=== PATIENT | female | born 2000 | race Hispanic/Latino ===

== ENCOUNTER 2024-05-31 08:18 | Emergency (ER) | payer OTHER ==
--- NOTE | 2024-05-31 08:43 | ER ---
Nurse's Notes [facility] Name: Cindy Ca Age: 23 yrs Sex: Female : 2000 Arrival Date: 05/31/2024 Time: 08:18 Bed 13 Private MD: Diagnosis: Otalgia, right ear Presentation: 05/31 08:25 Chief complaint: Patient states: R ear pain for 3 days. No fever. Coronavirus screen: ll1 Client denies travel out of the [place] in the last 14 days. At this time, the client does not indicate any symptoms associated with coronavirus-19. Ebola Screen: Patient denies travel to an Ebola-affected area in the 21 days before illness onset. Initial Sepsis Screen: Does the patient meet any 2 criteria? No. Patient's initial sepsis screen is negative. Does the patient have a suspected source of infection? No. Patient's initial sepsis screen is negative. Risk Assessment: Do you want to hurt yourself or someone else? Patient reports no desire to harm self or others. Onset of symptoms was May 29, 2024. 08:25 Method Of Arrival: Ambulatory ll1 08:25 Acuity: JONATHON 4 ll1 Triage Assessment: 08:27 General: Appears uncomfortable, Behavior is calm, cooperative, appropriate for age. ll1 Pain: Complains of pain in right ear Pain currently is 8 out of 10 on a pain scale. Quality of pain is described as aching, throbbing. EENT: Reports pain in right ear. Neuro: No deficits noted. Cardiovascular: No deficits noted. 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 - Infectious Disease History:: Denies. - Social history:: Smoking status: Patient denies any tobacco usage or history of. - Family history:: not pertinent. - Hospitalizations: : No recent hospitalization is reported. Screenin:27 [facility] ED Fall Risk Assessment (Adult) History of falling in the last 3 months, ll1 including since admission No falls in past 3 months (0 pts) Confusion or Disorientation No (0 pts) Intoxicated or Sedated No (0 pts) Impaired Gait No (0 pts) Mobility Assist Device Used No (0 pt) Altered Elimination No (0 pt) Score/Fall Risk Level 0 - 2 = Low Risk Maintained a safe environment, Hourly rounding (assess needs \T\ fall precautionary measures) done. Abuse screen: Denies threats or abuse. Nutritional screening: No deficits noted. Tuberculosis screening: No symptoms or risk factors identified. Assessment: 08:51 Reassessment: No changes from previously documented assessment. Patient and/or family ll1 updated on plan of care and expected duration. Pain level reassessed. Patient is alert, oriented x 3, equal unlabored respirations, skin warm/dry/pink. Vital Signs: 08:25 BP 141 / 100; Pulse 74; Resp 16; Temp 97.4; Pulse Ox 100% ; Weight 99.79 kg; Height 5 ll1 ft. 4 in. ; Pain 8/10; 08:51 BP 138 / 101; Pulse 70; Resp 16; Pulse Ox 100% ; ll1 08:25 Body Mass Index 37.76 (99.79 kg, 162.56 cm) ll1 08:25 Pain Scale: Adult ll1 ED Course: 08:21 Patient arrived in ED. mg5 08:23 Alli Larios MD is Attending Physician. rn 08:23 Arm band placed on Patient placed in an exam room, on a stretcher. ll1 08:27 Triage completed. ll1 08:28 Patient has correct armband on for positive identification. Bed in low position. ll1 Provided Education on: finish all prescribed antibiotics. Cardiac monitoring not applicable on this patient. 08:42 Penny Thomas MD is Referral Physician. rn 08:51 No provider procedures requiring assistance completed. Patient did not have IV access ll1 during this emergency room visit. Administered Medications: No medications were administered Medication: 08:28 VIS not applicable for this client. ll1 Outcome: 08:42 Discharge ordered by . rn 08:51 Discharged to home ambulatory, 1 08:51 Condition: stable 08:51 Discharge instructions given to patient, Instructed on discharge instructions, follow up and referral plans. Demonstrated understanding of instructions, follow-up care, 08:52 Patient left the ED. ll1 Signatures: Alli Larios MD MD rn Lewis, Lynsay, RN RN ll1 Effie Gordon mg5
--- NOTE | 2024-05-31 08:43 | EDPHYS ---
Physician Documentation [facility] Name: Cindy Ca Age: 23 yrs Sex: Female : 2000 Arrival Date: 05/31/2024 Time: 08:18 Bed 13 Private MD: ED Physician Alli Larios HPI: 05/31 08:37 This 23 yrs old Female presents to ER via Ambulatory with complaints of Ear Pain. rn 08:38 The patient presents with pain. The complaints affect the right ear. Onset: The rn symptoms/episode began/occurred 2 day(s) ago. Modifying factors: The symptoms are alleviated by nothing, the symptoms are aggravated by nothing. Severity of symptoms: At their worst the symptoms were. 08:40 The patient has not experienced similar symptoms in the past. Pt reports right sided rn ear pain, for 2 days, no trauma. No fever. NO congestion. Reports more pain to external ear. No change in hearing.. 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 - Infectious Disease History:: Denies. - Social history:: Smoking status: Patient denies any tobacco usage or history of. - Family history:: not pertinent. - Hospitalizations: : No recent hospitalization is reported. ROS: 08:40 Constitutional: Negative for fever, chills, and weight loss, ENT: Positive for ear pain rn Exam: 08:40 Constitutional: This is a well developed, well nourished patient who is awake, alert, rn and in no acute distress. ENT: Normal TM. No erythema or bulging. No fluid. No foreign body. No external meatus inflammation or rash or lesions. Vital Signs: 08:25 BP 141 / 100; Pulse 74; Resp 16; Temp 97.4; Pulse Ox 100% ; Weight 99.79 kg; Height 5 ll1 ft. 4 in. ; Pain 8/10; 08:51 BP 138 / 101; Pulse 70; Resp 16; Pulse Ox 100% ; ll1 08:25 Body Mass Index 37.76 (99.79 kg, 162.56 cm) ll1 08:25 Pain Scale: Adult ll1 MDM: 08:23 Patient medically screened. rn 08:40 Differential diagnosis: acute otalgia. Data reviewed: vital signs, nurses notes, and as rn a result, I will discharge patient. Counseling: I had a detailed discussion with the patient and/or guardian regarding the historical points, exam findings, and any diagnostic results supporting the discharge/admit diagnosis, the need for outpatient follow up, to return to the emergency department if symptoms worsen or persist or if there are any questions or concerns that arise at home. Special discussion: I discussed with the patient/guardian in detail that at this point there is no indication for admission to the hospital. It is understood, however, that if the symptoms persist or worsen the patient needs to return immediately for re-evaluation. Based on the history and exam findings, there is no indication for further emergent testing or inpatient evaluation. I discussed with the patient/guardian the need to see the primary care provider for further evaluation of the symptoms. ED course: No evidence of foreign body/trauma/infection at this time. Will discharge home with return precautions and [id number] medication for acute otalgia.. 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
[2024-05-31 22:09] VITALS: TEMP 97.4; O2SAT 100
[2024-05-31 22:10] VITALS: BP 138/101
== END 2024-05-31 08:52 | disposition home or self-care (01) ==
LOC: ER 08:18
DX: H92.01 Otalgia, right ear (principal)
CPT/HCPCS: 99282

== ENCOUNTER 2025-06-15 23:19 | Emergency (ER) | payer OTHER, SELFPAY ==
[2025-06-16 00:44] LABS: Absolute Lymphocytes (CBC) 2.0 K/uL (0.7-4.9); Hematocrit 39.3 % (36.0-45.0); Hemoglobin 13.5 g/dL (12.0-15.0); MCH 28.1 pg (27.0-35.0); MCHC 34.3 g/dL (32.0-36.0); MCV 82.0 fL (80-100); MPV 7.7 fL (7.6-11.3); Nucleated RBC Absolute Count 0.0 (0-0); Nucleated Red Blood Cells % 0.1 % (0-0); RBC Red Blood Cell Count 4.79 M/uL (3.86-4.86); White Blood Count 9.10 thou/uL (4.3-10.9)
[2025-06-16 00:46] LABS: ALT/SGPT 63.0 U/L (13-56); AST/SGOT 43.0 U/L (15-37); Albumin 3.7 g/dL (3.4-5.0); Albumin/Globulin Ratio 0.9 (1.1-1.8); Alkaline Phosphatase 100.0 U/L (45-117); Anion Gap 8.6 mEq/L (5.0-15.0); BUN Blood Urea Nitrogen 9.0 mg/dL (7-18); Globulin 4.1 g/dL (2.3-3.5); Glucose Level 119.0 mg/dL (74-106); Lipase 62.0 U/L (13-75); Potassium 3.6 mEq/L (3.5-5.1)
[2025-06-16 01:01] LABS: Sqamous Epithelial <5 /HPF (None Seen)
[2025-06-16 01:03] LABS: Urine Culture Reflex Order REFLEXED; Urine Microscopic Reflex YN NO UMIC
[2025-06-16] MEDS ORDERED: CEFTRIAXONE 1000 MG/VIAL ONE (01:30)
--- NOTE | 2025-06-16 04:11 | RAD REPORT ---
EXAM DESCRIPTION: Abdomen Pelvis W Contrast RadLex: CT ABDOMEN PELVIS WITH IV CONTRAST CLINICAL HISTORY: 24 years Female; ABD PAIN; IV ONLY Bed Name: 15 TECHNIQUE: CT of the abdomen and pelvis [with] intravenous contrast. All CT scans at this facility use dose modulation, iterative reconstruction, and/or weight based dosi ng when appropriate to reduce radiation dose to as low as reasonably achievable. COMPARISON: None. FINDINGS: Lower thorax: Lung bases are clear Abdomen: Stomach: Within normal limits Liver: No focal lesions. Hepatic steatosis. No intrahepatic ductal distention. Gallbladder: Nondistended Pancreas: Within normal limits Spleen: Within normal limits Right kidney: No hydronephrosis. No focal lesion. Left kidney: No hydronephrosis. No focal lesion. Adrenal glands: Within normal limits Vascular structures: Within normal limits Nodes: No lymphadenopathy by size criteria Pelvis: Small bowel: No significant distention. Appendix: Within normal limits Colon: No distention or acute pericolonic edema. Peritoneum: No free intraperitoneal fluid or air. Bones: No acute bone findings. Bladder: Unremarkable. Reproductive organs: No acute findings. Soft tissues: Small fat-containing umbilical hernia. IMPRESSION: 1. No acute abdominopelvic findings. 2. Hepatic steatosis. Electronically signed by: Jocelyn Samaniego MD 06/16/2025 04:03 AM CDT RP TYG Due to temporary technical issues with the [employer] reporting system, reports are being amanda d by the in-house radiologist without review as a courtesy to ensure prompt reporting the interpreting radiologist is fully responsible for the content of the report. Transcribed Date/Time: 06/16/2025 4:11 AM
--- NOTE | 2025-06-16 04:26 | EDPHYS ---
Physician Documentation [facility] Name: Cindy Ca Age: 24 yrs Sex: Female : 2000 Arrival Date: 06/15/2025 Time: 23:19 Bed 15 Private MD: ED Physician Carl Vázquez HPI: 06/15 23:31 This 24 yrs old Female presents to ER via Unassigned with complaints of sb4 Abdominal Pain. 23:31 Patient reports left-sided abdominal pain that began this morning. She states that it sb4 was initially upper but now is moving to the lower end. States that she has not had a menstrual cycle in about 2 months now, but did have a negative UPT about 2 weeks ago. Also thinks that she may have started her cycle today. Denies any nausea, vomiting, diarrhea. Denies any urinary symptoms. 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 - Infectious Disease History:: Denies. - Social history:: Smoking status: Patient denies any tobacco usage or history of. ROS: 23:31 Constitutional: Negative for fever, chills, and weight loss, sb4 23:31 Abdomen/GI: Positive for abdominal pain, 23:31 All other systems are negative, 23:31 : Positive for menstrual abnormality, sb4 Exam: 23:31 Constitutional: This is a well developed, well nourished patient who is awake, alert, sb4 and in no acute distress. Head/Face: Normocephalic, atraumatic. Eyes: Extra-ocular motions intact. Periorbital areas with no swelling, redness, or edema. ENT: Mucous membranes moist. Cardiovascular: Regular rate and rhythm with a normal S1 and S2. Respiratory: No increased work of breathing, no retractions or nasal flaring. Skin: Warm, dry with normal turgor. Normal color with no rashes, no lesions, and no evidence of cellulitis. 23:31 Abdomen/GI: Inspection: abdomen appears normal, obese Bowel sounds: normal, Palpation: soft, moderate abdominal tenderness, in the left upper quadrant and left lower quadrant, Vital Signs: 23:26 BP 135 / 97; Pulse 100; Resp 16; Temp 98; Pulse Ox 100% on R/A; ss12 06/16 01:00 BP 132 / 81; Pulse 94; Resp 16; Pulse Ox 100% ; 12 01:03 Weight 115.67 kg; Height 5 ft. 5 in. ; 12 02:40 BP 130 / 83; Pulse 100; Resp 18; Pulse Ox 100% on R/A; 12 03:49 BP 124 / 82; Pulse 89; Resp 16; Pulse Ox 100% on R/A; 12 05:13 BP 110 / 77; Pulse 88; Resp 16; Pulse Ox 99% on R/A; ss12 01:03 Body Mass Index 42.43 (115.67 kg, 165.1 cm) 12 MDM: 06/15 23:26 Medical Screening Exam initiated sb4 23:32 Differential diagnosis: diverticulitis, Dysmenorrhea, Ectopic , non-specific sb4 abd pain, urinary tract infection. 06/16 04:14 Data reviewed: vital signs, nurses notes, lab test result(s), radiologic studies, CT sp4 scan. Consideration of Admission/Observation Escalation of care including admission/observation considered. 04:15 ED course: FINDINGS: Lower thorax: Lung bases are clear Abdomen: Stomach: Within normal sp4 limits Liver: No focal lesions. Hepatic steatosis. No intrahepatic ductal distention. Gallbladder: Nondistended Pancreas: Within normal limits Spleen: Within normal limits Right kidney: No hydronephrosis. No focal lesion. RADIOLOGY SERVICES REPORT Left kidney: No hydronephrosis. No focal lesion. Adrenal glands: Within normal limits Vascular structures: Within normal limits Nodes: No lymphadenopathy by size criteria Pelvis: Small bowel: No significant distention. Appendix: Within normal limits Colon: No distention or acute pericolonic edema. Peritoneum: No free intraperitoneal fluid or air. Bones: No acute bone findings. Bladder: Unremarkable. Reproductive organs: No acute findings. Soft tissues: Small fat-containing umbilical hernia. IMPRESSION: 1. No acute abdominopelvic findings. 2. Hepatic steatosis. Electronically signed by: Jocelyn Samaniego MD. 06/15 23:27 Order name: CBC with Diff; Complete Time: 00:51 sb4 06/15 23:27 Order name: CMP; Complete Time: 00:51 sb4 06/15 23:27 Order name: Lipase; Complete Time: 00:51 sb4 06/15 23:27 Order name: Test, Serum; Complete Time: 00:51 sb4 06/15 23:27 Order name: UA Rfx Antonio Cult if indicated; Complete Time: 01:05 sb4 06/16 01:06 Order name: Urine Culture [facility] 06/16 00:51 Order name: CT Abd/Pelvis - IV Contrast Only; Complete Time: 04:14 sb4 06/15 23:27 Order name: IV Saline Lock; Complete Time: 01:23 sb4 06/15 23:27 Order name: Labs collected and sent; Complete Time: : sb4 Administered Medications: 01:10 Drug: Rocephin IV 1 grams IV at calculated rate once; Given slow IV push per pharmacy ss12 instructions Route: IV; Rate: calculated rate; Site: left antecubital; 01:40 Follow up: IV Status: Completed infusion; IV Intake: 10ml ss12 02:00 Follow up: IV Status: Completed infusion; IV Intake: 10ml ss12 Disposition: 01:41 Co-signature as Attending Physician, Carl Vázquez MD I agree with the assessment sp4 and plan of care. I reviewed the patient's care provided by Advanced Practice Provider \T\ agree w/ the diagnosis \T\ care plan. I personally saw the pt \T\ performed a substantive portion of the visit, incldng all aspects of the (History/Exam/Medical Decision Making). 14:04 Chart complete. sb4 Disposition Summary: 06/16/25 04:25 Discharge Ordered Problem: new sp4 Symptoms: have improved sp4 Condition: Stable sp4 Diagnosis - Left upper quadrant abdominal pain, hematuria secondary to menstrual period, sp4 metrorrhagia, hepatic steatosis Followup: sp4 - With: Shadi Paniagua MD - When: 7 - 10 days - Reason: Recheck today's complaints Discharge Instructions: - Discharge Summary Sheet sp4 - Nonalcoholic Fatty Liver Disease Diet, Adult sp4 Forms: - Patient Portal Instructions sp4 Prescriptions: - meloxicam 15 mg Oral tablet - take 1 tablet ORAL route daily PRN pain; 30 tablet; Refills: 0, Product sp4 Selection Permitted - dicyclomine 20 mg Oral tablet - take 2 tablets ORAL route 3 times per day PRN abdominal pain; 60 tablet; sp4 Refills: 0, Product Selection Permitted Signatures: Dispatcher [employer] EDMS Rosanna Harper PA-C PA-C sb4 Carl Vázquez MD MD sp4 Domenico Acuña RN RN ss12 Corrections: (The following items were deleted from the chart) 06/15 23:27 23:27 CBC+H.LAB.BRZ ordered. EDMS EDMS : 23:27 COMPREHENSIVE METABOLIC PANEL+C.LAB.BRZ ordered. EDMS EDMS : 23:27 LIPASE+C.LAB.BRZ ordered. EDMS EDMS : 23:27 TEST, SERUM+SC.LAB.BRZ ordered. EDMS EDMS : 23:27 UA Rfx Antonio Cult if indicated+U.LAB.BRZ ordered. EDMS EDMS
--- NOTE | 2025-06-16 04:26 | ER ---
Nurse's Notes [facility] Name: Cindy Ca Age: 24 yrs Sex: Female : 2000 Arrival Date: 06/15/2025 Time: 23:19 Bed 15 Private MD: Diagnosis: Left upper quadrant abdominal pain, hematuria secondary to menstrual period, metrorrhagia, hepatic steatosis Presentation: 06/15 23:26 Chief complaint: EMS states: Pt stated having left upper abdominal pain since this ss12 morning. pain is 5/10. ache pressure like. LMP 2 months ago. Took test at home and is negative. Pt been having nausea since 2 weeks. Coronavirus screen: Client denies travel out of the [place] in the last 14 days. Ebola Screen: Patient negative for fever greater than or equal to 101.5 degrees Fahrenheit, and additional compatible Ebola Virus Disease symptoms Patient denies exposure to infectious person. Patient denies travel to an Ebola-affected area in the 21 days before illness onset. Initial Sepsis Screen: Does the patient meet any 2 criteria? HR > 90 bpm. Does the patient have a suspected source of infection? No. Patient's initial sepsis screen is negative. Risk Assessment: Do you want to hurt yourself or someone else? Patient reports no desire to harm self or others. Onset of symptoms was June 15, 2025. 23:26 Method Of Arrival: EMS: [place] [id number] 23:26 Acuity: JONATHON 3 ss12 Triage Assessment: 23:26 General: Appears in no apparent distress. comfortable, Behavior is calm, cooperative, ss12 quiet. Pain: Complains of pain in left upper quadrant pain Pain does not radiate. Pain currently is 5 out of 10 on a pain scale. Quality of pain is described as aching, pressure. EENT: No deficits noted. No signs and/or symptoms were reported regarding the EENT system. Neuro: Level of Consciousness is awake, alert, obeys commands, Oriented to person, place, time, situation. Cardiovascular: No deficits noted. Capillary refill Patient's skin is warm and dry. Respiratory: Airway is patent Respiratory effort is even, unlabored, Respiratory pattern is regular, symmetrical. GI: Abdomen is round non-distended. : No deficits noted. No signs and/or symptoms were reported regarding the genitourinary system. Derm: Skin is intact, Skin is dry, Skin is pink, warm \T\ dry. normal. Musculoskeletal: No deficits noted. No signs and/or symptoms reported regarding the musculoskeletal system. 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 - Infectious Disease History:: Denies. - Social history:: Smoking status: Patient denies any tobacco usage or history of. Screenin:41 Clinical [place] Withdrawal Assessment for Alcohol, revised (CIWA-Ar): ss12 Nausea/Vomitin - No nausea or vomiting. [facility] ED Fall Risk Assessment (Adult) History of falling in the last 3 months, including since admission No falls in past 3 months (0 pts) Confusion or Disorientation No (0 pts) Intoxicated or Sedated No (0 pts) Impaired Gait No (0 pts) Mobility Assist Device Used No (0 pt) Altered Elimination No (0 pt) Score/Fall Risk Level 0 - 2 = Low Risk Oriented to surroundings, Maintained a safe environment, Educated pt \T\ family on fall prevention, incl call for assistance when getting out of bed, Assessed \T\ reinforced patient's understanding of fall precautions. Abuse screen: Denies threats or abuse. Denies injuries from another. Nutritional screening: No deficits noted. Tuberculosis screening: No symptoms or risk factors identified. Assessment: 23:42 GI: Abd is non tender X 4 quads. 12 06/16 02:01 GI: Bowel sounds present X 4 quads. 12 Vital Signs: 06/15 23:26 BP 135 / 97; Pulse 100; Resp 16; Temp 98; Pulse Ox 100% on R/A; ss12 06/16 01:00 BP 132 / 81; Pulse 94; Resp 16; Pulse Ox 100% ; 12 01:03 Weight 115.67 kg; Height 5 ft. 5 in. ; ss12 02:40 BP 130 / 83; Pulse 100; Resp 18; Pulse Ox 100% on R/A; 12 03:49 BP 124 / 82; Pulse 89; Resp 16; Pulse Ox 100% on R/A; ss12 05:13 BP 110 / 77; Pulse 88; Resp 16; Pulse Ox 99% on R/A; ss12 01:03 Body Mass Index 42.43 (115.67 kg, 165.1 cm) ss12 ED Course: 06/15 23:26 Patient arrived in ED. sb4 23:26 Rosanna Harper [facility]-C [facility] sb4 23:26 Carl Vázquez MD is Attending Physician. sb4 23:35 Domenico Acuña, RN is Primary Nurse. ss12 23:39 Triage completed. ss12 23:41 Arm band placed on right wrist. ss12 23:42 Patient has correct armband on for positive identification. ss12 23:42 No provider procedures requiring assistance completed. ss12 23:43 Provided Education on: plan of care discussed. ss12 23:50 Inserted saline lock: 20 gauge in left antecubital area, using aseptic technique. Blood ss12 collected. Flushed with 10 mL NS. 06/16 01:23 CT Abd/Pelvis - IV Contrast Only Sent. ss12 02:13 CT Abd/Pelvis - IV Contrast Only In Process Unspecified. EDOR 04:24 Shadi Paniagua MD is Referral Physician. sp4 05:22 IV discontinued, intact, bleeding controlled, No redness/swelling at site. Pressure ss12 dressing applied. Administered Medications: 01:10 Drug: Rocephin IV 1 grams IV at calculated rate once; Given slow IV push per pharmacy ss12 instructions Route: IV; Rate: calculated rate; Site: left antecubital; 01:40 Follow up: IV Status: Completed infusion; IV Intake: 10ml ss12 02:00 Follow up: IV Status: Completed infusion; IV Intake: 10ml ss12 Medication: 06/15 23:42 VIS not applicable for this client. ss12 Intake: 06/16 01:40 IV: 10ml; Total: 10ml. ss12 02:00 IV: 10ml; Total: 20ml. ss12 Outcome: 04:25 Discharge ordered by . sp4 05:21 Discharged to home ambulatory, ss12 05:21 Condition: stable 05:21 Discharge instructions given to patient, Instructed on discharge instructions, Demonstrated understanding of instructions, follow-up care, Prescriptions given X 2, 05:22 Patient left the ED. ss12 Signatures: Dispatcher [employer] EDOR Rosanna Harper PA-C PA-C sb4 Potepalov, Sergey, MD MD sp4 Shamaila, Shamaila, RN RN ss12
[2025-06-16 09:01] VITALS: TEMP 98
[2025-06-16 09:06] VITALS: BP 110/77; O2SAT 99
== END 2025-06-16 05:22 | disposition home or self-care (01) ==
LOC: ER 23:19
DX: N92.1 Excessive and frequent menstruation with irregular cycle (principal); K76.0 Fatty (change of) liver, not elsewhere classified
CPT/HCPCS: 36415; 74177; 80053; 81003; 83690; 84703; 85025; 87086; 87088; 96365; 99284; J0696; Q9967